=== PATIENT | female | born 1950 | race Caucasian/White ===

== ENCOUNTER 2024-02-16 23:54 | Emergency (ER) | payer BC, OTHER ==
[~2024-02-16 23:54] MED LIST: Iopamidol 370 76% 100 ML VIAL ONE; Sodium Chloride 0.9% 100 ML BAG ONE
[2024-02-17] MEDS ORDERED: Aspirin 325 MG TAB ONE (00:27)
[2024-02-17] MEDS ORDERED: Ondansetron PF 4 MG/2 ML Vial ONE (00:27)
[2024-02-17] MEDS ORDERED: Sodium Chloride 0.9% 1,000 ML ONE (00:27)
[2024-02-17] MEDS ORDERED: Aspirin Chewable 81 MG TAB ONE (00:29)
[2024-02-17 00:48] LABS: #Basophils 0.1 thou/uL (0.0-0.2); #Eosinphils 0.3 thou/uL (0.0-0.7); #Lymphocytes 2.8 thou/uL (1.20-3.40); #Monocytes 0.8 thou/uL (0.11-0.59); #Neutrophils 5.9 thou/uL (1.40-6.50); %Basophils 0.9 % (0.0-1.0); %Lymphocytes 28.5 % (21.0-51.0); %Neutrophils 59.6 % (42.0-75.0); Hematocrit 41.6 % (36.0-47.0); Hemoglobin 12.7 g/dL (12.0-16.0); Mean Corpuscular HGB CONC 30.5 g/dL (32.0-36.0); Mean Corpuscular Hemoglobin 29.7 pg (27.0-31.0); Mean Corpuscular Volume 97.3 fl (78.0-98.0); Mean Platelet Volume 9.2 fL (7.4-10.4); Platelet Count 172 10x3/uL (130-400); RBC Distribution Width 13.8 % (11.5-14.5); Red Blood Cell (RBC) Count 4.27 mill/uL (4.20-5.40); White Blood Cell (WBC) Count 9.9 10x3/uL (4.8-10.8)
[2024-02-17 00:55] LABS: ALT (SGPT) 16 U/L (8-55); AST (SGOT) 15 U/L (5-34); Albumin 3.5 g/dL (3.4-4.8); Alkaline Phosphatase 55 U/L (40-110); Anion Gap 15 mmol/L (10-20); BUN (Urea Nitrogen) 19 mg/dL (9.8-20.1); Bilirubin, Total 0.2 mg/dL (0.2-1.2); Calc. Creatinine Clearance 0 mL/min (70-130); Calcium 9.2 mg/dL (7.8-10.44); Carbon Dioxide 22 mmol/L (23-31); Chloride 109 mmol/L (98-107); Estimated GFR 56; Globulin 2.5 g/dL (2.4-3.5); Glucose 120 mg/dL (83-110); Magnesium 1.9 mg/dL (1.6-2.6); Potassium 3.3 mmol/L (3.5-5.1); Sodium 143 mmol/L (136-145)
[2024-02-17 01:04] LABS: Troponin I Less than 0.010 ng/mL (< 0.028)
== END 2024-02-17 02:53 | disposition home or self-care (01) ==
LOC: MADERS 23:54
DX: R00.2 Palpitations (principal); E86.0 Dehydration
CPT/HCPCS: 71046; 71275; 80053; 83735; 84484; 85025; 85379; 93005; 96361; 96374; J2405; J7030; Q9967

== ENCOUNTER 2025-04-06 09:30 | Emergency (ER) | payer OTHER ==
[2025-04-06 09:52] LABS: Glucose, Urine (Dipstick) 100 mg/dL (Negative); Leukocyte Small (Negative); Protein, Urine (Dipstick) 100 mg/dL (Neg-Trace); Specific Gravity, Urine Greater/Equal 1.030 (1.005-1.030)
[2025-04-06 10:01] LABS: Bacteria/HPF 1+ HPF (None Seen); CAUTI Indications for Culture Dysuria,urgency,freq; WBC/HPF Greater than 50 HPF (0-3)
[2025-04-06 10:03] LABS: Urine Culture Reflex Yes Yes
[2025-04-06] MEDS ORDERED: cefTRIAXone (ROCEPHIN) 2 GM VIAL ONE (10:04)
[2025-04-06] MEDS ORDERED: Nitroglycerin 0.4 MG TAB 1 EACH ONE (10:04)
[2025-04-06] MEDS ORDERED: Aspirin Chewable 81 MG TAB ONE (10:05)
[2025-04-06 10:22] LABS: #Basophils 0.1 thou/uL (0.0-0.2); #Eosinophils 0.1 thou/uL (0.0-0.7); #Lymphocytes 1.0 thou/uL (1.20-3.40); #Monocytes 0.4 thou/uL (0.11-0.59); #Neutrophils 5.1 thou/uL (1.40-6.50); %Basophils 0.8 % (0.0-1.0); %Eosinophils 1.4 % (0.0-10.0); %Lymphocytes 15.6 % (21.0-51.0); %Monocytes 5.5 % (0.0-10.0); %Neutrophils 76.7 % (42.0-75.0); Hematocrit 38.2 % (36.0-47.0); Hemoglobin 12.5 g/dL (12.0-16.0); Mean Corpuscular Hemoglobin 31.2 pg (27.0-31.0); Mean Corpuscular Volume 95.2 fl (78.0-98.0); Platelet Count 146 10x3/uL (130-400); Red Blood Cell (RBC) Count 4.01 mill/uL (4.20-5.40); White Blood Cell (WBC) Count 6.6 10x3/uL (4.8-10.8)
[2025-04-06 10:31] LABS: INR-International Normal Ratio 1.0; Prothrombin Time 13.1 sec (12.0-14.7)
[2025-04-06 10:32] LABS: PTT 32.8 sec (22.9-36.1)
[2025-04-06 10:42] LABS: Troponin I 0.034 ng/mL (< 0.028)
[2025-04-06 10:43] LABS: ALT (SGPT) 16 U/L (Less than 34); AST (SGOT) 22 U/L (11-34); Albumin 3.4 g/dL (3.1-4.5); Alkaline Phosphatase 67 U/L (40-110); Anion Gap 14 mmol/L (10-20); BUN (Urea Nitrogen) 12 mg/dL (9.8-20.1); Bilirubin, Total 0.5 mg/dL (0.3-1.2); Calc. Creatinine Clearance 0 mL/min (70-130); Calcium 9.0 mg/dL (7.8-10.44); Carbon Dioxide 25 mmol/L (23-31); Chloride 106 mmol/L (98-107); Globulin 2.8 g/dL (2.4-3.5); Glucose 94 mg/dL (83-110); Lipase 9 U/L (8-78); Potassium 4.0 mmol/L (3.5-5.1); Sodium 141 mmol/L (136-145)
[2025-04-06 13:37] LABS: Troponin I 0.024 ng/mL (< 0.028)
== END 2025-04-06 14:09 | disposition home or self-care (01) ==
LOC: MADERS 09:30
DX: N39.0 Urinary tract infection, site not specified (principal); R07.89 Other chest pain; I10 Essential (primary) hypertension; E78.5 Hyperlipidemia, unspecified; E03.9 Hypothyroidism, unspecified; Z79.890 Hormone replacement therapy; Z79.899 Other long term (current) drug therapy
CPT/HCPCS: 71045; 80053; 81001; 83605; 83690; 84484 ×2; 85025; 85610; 85730; 87040; 87086; 87426; 93005; 94760; J0696; J7030; 87077; 87186; 96365